=== PATIENT | female | born 1955 | race American Indian/Alaskan Native ===

== ENCOUNTER 2017-11-11 08:19 | Outpatient (CLI) | payer BC ==
--- NOTE | 2017-11-11 09:32 | XRay Report ---
XRAY RIGHT HAND THREE VIEWS: 11/11/17 08:19:00 CLINICAL: Arthralgia. FINDINGS: Mild osteopenia. Moderate osteoarthritis of the basal joint of the thumb and the IP joint of the thumb. Mild osteoarthritis of the DIP joints of the index and middle fingers. The carpal bones are intact. The distal radius and ulna are normal. Mild radiocarpal joint arthritis. The soft tissues are normal. IMPRESSION: Moderate osteoarthritis.
--- NOTE | 2017-11-11 10:57 | Ultrasound Report ---
ULTRASOUND PELVIC COMPLETE ULTRASOUND TRANSVAGINAL HISTORY: Left adnexal pain, left pelvic pain. COMPARISON: None. TECHNIQUE: Transabdominal and transvaginal ultrasound with color doppler interrogation. FINDINGS: Uterus: Not clearly identified. History of partial hysterectomy in 2001 was given by the patient. Endometrium: Not visualized. Right ovary: Not visualized. Left ovary: 1.4 x 0.7 x 1.2 cm. No adnexal cyst or mass. No pelvic fluid, cyst or mass is identified. IMPRESSION: Partial hysterectomy. The right ovary is not visualized. The left ovary is normal. No abnormality is detected to explain left adnexal pain.
--- NOTE | 2017-11-11 14:39 | Mammography Report ---
BILATERAL DIGITAL SCREENING MAMMOGRAM with CAD: 11/11/17 08:19:00 CLINICAL: Routine screening. COMPARISON:11/04/16 FINDINGS: The breasts are heterogeneously dense, which may obscure small masses. No mass, architectural distortion or suspicious calcifications. IMPRESSION: No mammographic evidence of malignancy. BI-RADS CATEGORY: 1 - - Negative RECOMMENDATION: Routine mammographic screening in one year. COMMENT: Patient follow-up letters are generated by our [employer] application.
== END 2017-11-11 08:20 | disposition home or self-care (01) ==
LOC: MAMMO 08:19
PROVIDERS: ATTEND Internal Medicine
DX: Z12.31 Encounter for screening mammogram for malignant neoplasm of breast (principal); M18.9 Osteoarthritis of first carpometacarpal joint, unspecified; M19.041 Primary osteoarthritis, right hand; M85.841 Other specified disorders of bone density and structure, right hand; R10.2 Pelvic and perineal pain; Z90.710 Acquired absence of both cervix and uterus
CPT/HCPCS: 73130; 76830; 76856; G0202; 77067

== ENCOUNTER 2018-12-06 11:52 | Outpatient (CLI) | payer BC ==
--- NOTE | 2018-12-06 15:07 | Vascular Lab Report ---
FINAL REPORT EXAM: VL VENOUS DUPLEX UE RT HISTORY: PAIN IN RIGHT ARM M79.601 COMPARISON: None. TECHNIQUE: Duplex Doppler ultrasound of the veins of the right upper extremity was performed. FINDINGS: The right internal jugular vein is patent, compressible, and demonstrate normal waveforms and augment ation. Right subclavian vein is patent, demonstrates a normal waveform and augmentation. The right ax illary vein, brachial vein, radial vein, ulnar vein, cephalic vein, and basilic vein are all patent a nd compressible. IMPRESSION: No evidence of deep venous thrombosis in the right upper extremity.
--- NOTE | 2018-12-07 09:24 | Mammography Report ---
BILATERAL DIGITAL SCREENING MAMMOGRAM with CAD : 12/06/18 11:52:00 CLINICAL: Routine screening. COMPARISON:11/11/17 and 11/04/16 FINDINGS: The breasts are heterogeneously dense, which may obscure small masses. No mass, architectural distortion or suspicious calcifications. IMPRESSION: No mammographic evidence of malignancy. BI-RADS CATEGORY: 2 -- Benign RECOMMENDATION: Routine mammographic screening in one year. COMMENT: Patient follow-up letters are generated by our [email or web address] application.
== END 2018-12-06 11:53 | disposition home or self-care (01) ==
LOC: MAMMO 11:52
PROVIDERS: ATTEND Internal Medicine
DX: Z12.31 Encounter for screening mammogram for malignant neoplasm of breast (principal); M79.601 Pain in right arm
CPT/HCPCS: 77067

== ENCOUNTER 2018-12-21 07:38 | Outpatient (CLI) | payer BC ==
--- NOTE | 2018-12-21 09:26 | Vascular Lab Report ---
FINAL REPORT EXAM: VL CAROTID DUPLEX BILAT HISTORY: I10 ESSENTIAL HTN/Z68.33 BMI30.0-33.9 TECHNIQUE: Carotid ultrasound. Degree of carotid stenosis calculated by indirect methods via the pea k systolic velocities of the ICA and CCA and reference with the society of Radiologist and Ul[employer] consensus conference radiology 2003. PRIORS: None currently available. FINDINGS: RIGHT CCA, ICA, and ECA (cm/s): 117, 82, and 98. Ratio = 0.70. LEFT CCA, ICA, and ECA (cm/s): 118, 84, and 77. Ratio = 0.71. There is plaque in both carotids. Both vertebral arteries demonstrate antegrade flow. Normal spectral rhythm is identified. IMPRESSION: No hemodynamically significant (>50%) stenosis noted based on the ratios, velocities, and color Do ppler images.
== END 2018-12-21 07:39 | disposition home or self-care (01) ==
LOC: VAS 07:38
PROVIDERS: ATTEND Nurse Practitioner Family
DX: I10 Essential (primary) hypertension (principal); R09.89 Other specified symptoms and signs involving the circulatory and respiratory systems; M79.601 Pain in right arm; Z68.33 Body mass index [BMI] 33.0-33.9, adult
CPT/HCPCS: 93306; 93880

== ENCOUNTER 2020-01-06 07:42 | Outpatient (CLI) | payer BC ==
--- NOTE | 2020-01-09 07:48 | Mammography Report ---
DIGITAL SCREENING MAMMOGRAM WITH CAD, 01/06/2020 INDICATION: Routine screening mammography. TECHNIQUE: Digital bilateral 2D mammography was obtained in the craniocaudal and mediolateral obliq ue projections. This examination was interpreted with the benefit of Computer-Aided Detection analysi s. COMPARISON: 12/06/2018 and mammograms going back to 09/12/2015 FINDINGS: Breast Density: The breasts are heterogeneously dense, which may obscure small masses. There is no evidence of dominant mass, suspicious calcifications or architectural distortion in eithe r breast. IMPRESSION: No mammographic evidence of malignancy. Follow up recommendation: Routine yearly BI-RADS Category 1: Negative. A "normal" or negative report should not discourage follow up or biopsy of a clinically significant f inding. A written summary of these findings will be mailed to the patient. The patient will be entered into a mammography reporting system which will generate a reminder letter for the patient's next appointmen t at the appropriate interval. The [employer] recommends yearly mammograms starting at age 40 and continuing as l topher as a woman is in good health. Breast MRI is recommended for women with an approximate 20-25% or greater lifetime risk of breast cancer, including women with a strong family history of breast or ova ian cancer or who have been treated for Hodgkin's disease. Signer Name: Rohan Rose MD Signed: 01/09/2020 7:43 AM Workstation Name: [id number]
== END 2020-01-06 07:43 | disposition home or self-care (01) ==
LOC: MAMMO 07:42
PROVIDERS: ATTEND Internal Medicine
DX: Z12.31 Encounter for screening mammogram for malignant neoplasm of breast (principal)
CPT/HCPCS: 77067

== ENCOUNTER 2021-01-11 14:47 | Outpatient (CLI) | payer BC ==
--- NOTE | 2021-01-11 17:39 | Mammography Report ---
DIGITAL SCREENING MAMMOGRAM WITH CAD, 01/11/2021 CLINICAL INFORMATION / INDICATION: Routine screening mammography. SCREENING MAMMO TECHNIQUE: Digital bilateral 2D mammography was obtained in the craniocaudal and mediolateral obliqu e projections. This examination was interpreted with the benefit of Computer-Aided Detection analysis . COMPARISON: Prior mammograms 01/06/2020 and 12/06/2018 FINDINGS: Breast Density: The breasts are heterogeneously dense, which may obscure small masses. No dominant mass, suspicious calcifications, or architectural distortion in either breast. There is stable benign post reduction change seen in both breasts. There has been no significant hobbs ge compared with the prior examinations. IMPRESSION: No mammographic evidence of malignancy. Follow up recommendation: Routine yearly BI-RADS Category 2: Benign. A "normal" or negative report should not discourage follow up or biopsy of a clinically significant f inding. A written summary of these findings will be mailed to the patient. The patient will be entered into a mammography reporting system which will generate a reminder letter for the patient's next appointmen t at the appropriate interval. The [employer] recommends yearly mammograms starting at age 40 and continuing as l topher as a woman is in good health. Breast MRI is recommended for women with an approximate 20-25% or greater lifetime risk of breast cancer, including women with a strong family history of breast or ova ian cancer or who have been treated for Hodgkin's disease. Signer Name: Tori Ba MD Signed: 01/11/2021 5:34 PM Workstation Name: [id number]
== END 2021-01-11 14:48 | disposition home or self-care (01) ==
LOC: MAMMO 14:47
PROVIDERS: ATTEND Internal Medicine
DX: Z12.31 Encounter for screening mammogram for malignant neoplasm of breast (principal)
CPT/HCPCS: 77067